=== PATIENT | male | born 1955 | race African-American/Black ===

== ENCOUNTER 2024-02-14 13:08 | Emergency (ER) | payer OTHER, MEDICAID ==
[~2024-02-14] VITALS: Ht 162.6 cm; Wt 67.7 kg
[~2024-02-14 13:08] MED LIST: CLOP75TA28 PO; SIMV40TA18 PO
[2024-02-14 15:38] VITALS: BP 153/95; PULSE 110; RESP 19; TEMP 96.9; O2SAT 99
[2024-02-14] MEDS ORDERED: LIDO5DIS21 TOP (15:43)
[2024-02-14] MEDS ORDERED: METH-1181 PO (15:43)
[2024-02-14] MEDS ORDERED: IBUP-1454 PO (15:43)
--- NOTE | 2024-02-14 15:43 | ED.PDOC ---
Back pain HPI HPI Comments 68-year-old male with a pertinent MHx presents with a chief complaint of bilateral paraspinal lumbosacral pain for two days. Reports he was bed-bound for the last two days after he was diagnosed with the flu. Symptoms described as aches and pains and worsen when laying on the affected side. Pain rated moderate to severe Denies history of chronic steroid use or history of osteoporosis Denies any history of cancer Denies fevers chills night sweats nausea vomiting unintentional weight loss Denies IV drug use history of HIV/TB Denies abdominal "tearing" pain Denies syncope Denies urinary incontinence or urinary changes Denies numbness tingling of the groin or inner thigh Denies previous back procedure or surgery Chief Complaint: Back Pain Time Seen by MD: 14:49 Primary Care Provider: KRISTY Rosas Notes: Nurses Notes, Medications, Allergies Allergies: Coded Allergies: NO KNOWN ALLERGIES (Unverified , 04/26/13) Home Meds Active Scripts Lidocaine (LIDODERM 5% TOPICAL PATCH) 1 Patch Ph, 1 PATCH TOP DAILY for 30 Days, #30 PATCH 0 Refills Prov:ROMINA REYNOLDS [employer] 02/14/24 Ibuprofen (Ibuprofen) 600 Mg Tab, 1 TAB PO TID for 10 Days, #30 TAB 0 Refills Prov:ROMINA REYNOLDS NP 02/14/24 Methocarbamol (Methocarbamol) 500 Mg Tab, 500 MG PO TIDP PRN for 10 Days, #30 TAB 0 Refills Prov:ROMINA REYNOLDS NP 02/14/24 Reported Medications Simvastatin (Simvastatin) 40 Mg Tab, 40 MG PO DAILY, TAB 05/08/13 Clopidogrel Bisulfate (Plavix) 75 Mg Tab, 75 MG PO DAILY, TAB 05/08/13 Information Source: Patient Mode of Arrival: Ambulatory Past Medical History PAST MEDICAL HISTORY: High Lipids Surgical History: BKA Family History Family History: Unknown Social History Smoker: Non-Smoker Alcohol: Denies ETOH Use Drugs: Denies Drug Use Lives In: Home All Other Systems: Reviewed and Negative (Per HPI) Physical Exam General Appearance: No Apparent Distress, Normal HEENT: Normal ENT Inspection, Pharynx Normal, TMs Normal Neck: Full Range of Motion, Non-Tender, Normal, Normal Inspection Respiratory: Chest Non-Tender, Lungs Clear, No Accessory Muscle Use, No Respiratory Distress, Normal Breath Sounds Cardiovascular: No Edema, No JVD, No Murmur, No Gallop, Normal Peripheral Pulses, Regular Rate/Rhythm Breast Exam: Deferred Gastrointestinal: No Organomegaly, Non Tender, No Pulsatile Mass, Normal Bowel Sounds, Soft Genitalia: Deferred Pelvic: Deferred Rectal: Deferred Extremities: No calf tenderness, Normal capillary refill, Normal inspection, Normal range of motion, Non-tender, No pedal edema Musculoskeletal : Location: Bilateral Extremity Location: Back (Bilateral paraspinal tenderness to palpation. No midline tenderness. Full ROM) Apperance: Normal Neurologic: Alert, check pilot II-XII nml as Tested, No Motor Deficits, Normal Affect, Normal Mood, No Sensory Deficits Cerebellar Function: Normal Reflexes: Normal Skin: Dry, Normal Color, Warm Lymphatic: No Adenopathy Was a procedure done? Was a procedure done?: No Back Pain Differential Dx Differential Diagnosis: Musculoskeletal Pain X-Ray, Labs, Meds, VS Vital Signs Date Time Temp Pulse Resp B/P (MAP) Pulse Ox O2 Delivery O2 Flow Rate FiO2 02/14/24 15:38 110 19 99 Room Air 02/14/24 15:38 96.9 110 19 153/95 (114) 99 96.9 02/14/24 13:30 96.9 110 18 153/95 (114) 99 X-Ray, Labs, Meds, VS Comment History and physical exam consistent with musculoskeletal pain No indication for imaging at this time. Supportive care advised (rest, ice, heat, NSAIDs, stretching exercises) Massage muscles with cold pack or ice for 20 minutes 4 times per day. Usually most useful if there is swelling during the first 48 hours Heating pad on the most painful area for 20 minutes to relieve muscle spasm Sleep and the most comfortable sleeping position (usually on the side with knees bent) Light stretching, no strenuous activity, avoid frequent bending, avoid carrying heavy objects Discussed possible benefits of yoga and acupuncture Return precautions discussed including Inability to walk/bear weight Paresthesia/weakness/leg pain Fecal/urinary incontinence Any worsening symptoms Time of 1ST Reevaluation: 15:30 Reevaluation 1ST: Improved Patient Education/Counseling: Diagnosis, Treatment Family Education/Counseling: Diagnosis, Treatment Departure 1 Departure Time of Disposition: 15:41 Impression: Primary Impression: Back pain Qualified Codes: M54.50 - Low back pain, unspecified Disposition: HOME / SELF CARE / HOMELESS Condition: Stable e-Prescriptions Lidocaine (LIDODERM 5% TOPICAL PATCH) 1 Patch Ph 1 PATCH TOP DAILY for 30 Days, #30 PATCH 0 Refills Prov: ROMINA REYNOLDS NP 02/14/24 Ibuprofen (Ibuprofen) 600 Mg Tab 1 TAB PO TID for 10 Days, #30 TAB 0 Refills Prov: ROMINA REYNOLDS NP 02/14/24 Methocarbamol (Methocarbamol) 500 Mg Tab 500 MG PO TIDP PRN for 10 Days, #30 TAB 0 Refills Prov: ROMINA REYNOLDS NP 02/14/24 Discharged With: Self Critical Care Note Critical Care Time?: No Stability Stability form required: No Heart Score Heart Score: Heart Score Response (Comments) Value History N/A 0 EKG N/A 0 Age N/A 0 Risk Factors N/A 0 Troponin N/A 0 Total 0 ROMINA REYNOLDS NP Feb 14, 2024 15:43
[2024-02-14] MEDS: HYDROcodone-ACET 5/325MG TAB PO ONE (15:58)
[2024-02-14] MEDS: KETOROLAC TROMETH 30 MG/ML 1ML VIAL IM ONE (15:59)
== END 2024-02-14 15:43 | disposition home or self-care (01) ==
LOC: ER 13:08
DX: M54.50 Low back pain, unspecified (principal); E78.5 Hyperlipidemia, unspecified; Z79.1 Long term (current) use of non-steroidal anti-inflammatories (NSAID); Z79.02 Long term (current) use of antithrombotics/antiplatelets; Z79.899 Other long term (current) drug therapy
CPT/HCPCS: 96372; 99283; J1885